=== PATIENT | male | born 1930 | race Caucasian/White ===

== ENCOUNTER 2018-02-03 12:01 | Inpatient (IN) | payer MEDICARE ==
[~2018-02-03] VITALS: Ht 180.3 cm; Wt 69.9 kg
[2018-02-03 12:57] LABS: BASOPHILS % (AUTO) 0.5 % (0.0-5.0); EOSINOPHILS % (AUTO) 0.7 % (0.0-8.0); HEMATOCRIT 30.1 % (42-54); MEAN CORPUSCULAR HEMOGLOBIN 29.4 pg (27.0-33.0); MEAN CORPUSCULAR HGB CONC 34.7 g/dL (32.0-36.0); MEAN CORPUSCULAR VOLUME 84.7 fL (79-99); MONOCYTES % (AUTO) 5.7 % (3.0-13.0); NEUTROPHILS % (AUTO) 76.1 % (40.0-77.0); PLATELET COUNT (AUTO) 218 K/uL (130-400); RED BLOOD CELL COUNT(AUTO) 3.55 MIL/uL (4.50-6.20); RED CELL DISTRIBUTION WIDTH 16.6 % (11.0-15.5); WHITE BLOOD COUNT (AUTO) 3.6 K/uL (4.8-10.8)
[2018-02-03 13:18] LABS: CREATININE 1.5 mg/dL (0.5-1.5); POTASSIUM 3.9 mmol/L (3.5-5.1)
[2018-02-03] MEDS ORDERED: DEXAMETHASONE SOD PHOSPHATE 10MG/ML 1ML VIAL ONE (13:22)
[2018-02-03 13:23] LABS: BILIRUBIN,TOTAL 0.9 mg/dL (0.2-1.0); TOTAL PROTEIN, SERUM 8.6 g/dL (6.0-8.3)
[2018-02-03] MEDS ORDERED: LABETALOL HCL 5 MG/ML 20ML VIAL IV ONE (13:23)
[2018-02-03 13:29] LABS: INR 1.02 (0.85-1.15); PARTIAL THROMBOPLASTIN TIME 27.3 SEC (26.3-35.5); PROTHROMBIN TIME 10.7 SEC (9.6-11.6)
[2018-02-03 13:40] LABS: B-TYPE NATRIURETIC PEPTIDE 252 pg/mL (0-100)
[2018-02-03] MEDS ORDERED: SODIUM CHLORIDE 0.9% 1000ML 1,000 ML IV ONE (13:46)
[2018-02-03] MEDS ORDERED: LEVOFLOXACIN 500 MG/D5W 100 ML 100 ML ONE (14:52)
[2018-02-03 15:00] VITALS: BP 162/70
[2018-02-03 15:11] LABS: APPEARANCE,URINE Clear (CLEAR); BILIRUBIN,URINE Negative (NEGATIVE); COLOR,URINE Dark Yellow (YELLOW); GLUCOSE, URINE (UA) TRACE mg/dL (NEGATIVE); KETONES,URINE Negative (NEGATIVE); LEUKOCYTE ESTERASE ,URINE Negative (NEGATIVE); NITRATE,URINE Negative (NEGATIVE); OCCULT BLOOD,URINE Negative (NEGATIVE); PROTEIN,URINE POS 1+ (NEGATIVE)
[2018-02-03 15:30] LABS: RBC,URINE 0-1 /HPF (0-1); WBC,URINE 0-1 /HPF (0-1)
[2018-02-03 15:31] LABS: BACTERIA,URINE Rare /HPF (None Seen); SQUAMOUS EPITHELIAL CELL,UR Rare /HPF (0-2); TRANSITIONAL EPI CELLS,URINE Rare /HPF (None Seen)
[2018-02-03] MEDS ORDERED: METF10004 PO (16:43)
[2018-02-03] MEDS ORDERED: HYDR25TA PO (16:43)
[2018-02-03] MEDS ORDERED: SIMV10TA6 PO (16:43)
[2018-02-03] MEDS ORDERED: AMLO1CAP13 PO (16:43)
[2018-02-03] MEDS ORDERED: MULT-1289 PO (16:43)
[2018-02-03] MEDS ORDERED: CETI10TA57 PO (16:43)
[2018-02-03] MEDS ORDERED: ONDANSETRON HCL MDV 20ML 2 MG/ML VIAL IVP PRN (17:15)
[2018-02-03] MEDS: SODIUM CHLORIDE 0.9% 1000ML 1,000 ML IV SCH ×2 (17:15→21:54)
[2018-02-03] MEDS ORDERED: ACETAMINOPHEN 325 MG TAB PO PRN ×2 (17:15)
[2018-02-03] MEDS ORDERED: LACTULOSE 20 GM/30 ML UDCUP PO PRN (17:15)
[2018-02-03 19:55] VITALS: BP 144/74
[2018-02-03] MEDS: GUAIFENESIN SUGAR-FREE 100 MG/5 ML UDCUP PO PRN (21:54)
[2018-02-03] MEDS ORDERED: DEXTROSE 50%-WATER 50 ML DISP.SYRIN IV PRN (23:00)
[2018-02-03] MEDS ORDERED: GLUCAGON 1MG KIT 1 MG ML IM PRN (23:00)
[2018-02-03 23:55] VITALS: BP 147/68
[2018-02-04] MEDS ORDERED: LIDOCAINE HCL-MPF 1% 2ML VIAL IVP PRN (00:30)
[2018-02-04] MEDS ORDERED: POTASSIUM CHLORIDE 10% ELIXIR 20 MEQ/15 ML UDCUP PO PRN (00:30)
[2018-02-04] MEDS ORDERED: HYDRALAZINE HCL 20 MG/ML VIAL IV PRN (00:30)
[2018-02-04] MEDS ORDERED: POTASSIUM CHLORIDE 20MEQ/100ML 100 ML IV PRN (00:30)
[2018-02-04 04:00] VITALS: BP 150/67
[2018-02-04 04:32] LABS: CREATININE 1.2 mg/dL (0.5-1.5)
[2018-02-04 04:39] LABS: BASOPHILS % (AUTO) 0.5 % (0.0-5.0); EOSINOPHILS % (AUTO) 1.1 % (0.0-8.0); HEMATOCRIT 24.7 % (42-54); LYMPHOCYTES % (AUTO) 21.1 % (21.0-51.0); MEAN CORPUSCULAR HEMOGLOBIN 32.8 pg (27.0-33.0); MEAN CORPUSCULAR HGB CONC 36.5 g/dL (32.0-36.0); MEAN CORPUSCULAR VOLUME 89.9 fL (79-99); MONOCYTES % (AUTO) 9.5 % (3.0-13.0); NEUTROPHILS % (AUTO) 67.8 % (40.0-77.0); NUCLEATED RED BLOOD CELLS 0.1 % (0.0-0.19); PLATELET COUNT (AUTO) 179 K/uL (130-400); RED BLOOD CELL COUNT(AUTO) 2.75 MIL/uL (4.50-6.20); WHITE BLOOD COUNT (AUTO) 2.6 K/uL (4.8-10.8)
[2018-02-04 04:54] LABS: HEMOGLOBIN A1C 7.7 % (4.0-6.0)
[2018-02-04] MEDS: GUAIFENESIN SUGAR-FREE 100 MG/5 ML UDCUP PO PRN (05:12)
[2018-02-04] MEDS: SODIUM CHLORIDE 0.9% 1000ML 1,000 ML IV SCH (05:20)
[2018-02-04 05:26] LABS: BAND NEUTROPHILS % (MANUAL) 8 % (0-2); EOSINOPHILS % (MANUAL) 2 % (1-6); LYMPHOCYTES % (MANUAL) 21 % (22-44); MAN.DIFF COMMENT-IMPRESSION MANUAL DIFFERENTIAL; MONOCYTES % (MANUAL) 5 % (2-9); REACTIVE LYMPHOCYTES 3 % (0-0); SEGMENTED NEUTROPHILS % 61 % (40-70)
[2018-02-04] MEDS: INSULIN HUMULIN R 100 UNIT/ML 3ML SQ SCH ×4 (06:50→21:49)
[2018-02-04 08:00] VITALS: BP 152/72
[2018-02-04] MEDS: FAMOTIDINE 20MG TAB 20 MG TAB PO SCH (09:23)
[2018-02-04] MEDS: IPRATROPIUM/ALBUTEROL SULFATE 3 ML SOLUTION IH SCH ×2 (13:05→21:17)
[2018-02-04 16:31] VITALS: BP 122/53
[2018-02-04] MEDS: METFORMIN HCL 500 MG TABLET PO SCH (18:32)
[2018-02-04 19:15] VITALS: BP 135/68
[2018-02-04] MEDS: ATORVASTATIN CALCIUM 10 MG TABLET PO SCH (21:40)
[2018-02-04] MEDS: AMLODIPINE-BENAZEPRIL 5-10 MG PO SCH (21:40)
[2018-02-05 00:10] VITALS: BP 134/53
[2018-02-05 04:10] VITALS: BP 143/60
[2018-02-05 05:19] LABS: BASOPHILS % (AUTO) 0.3 % (0.0-5.0); HEMATOCRIT 24.8 % (42-54); LYMPHOCYTES % (AUTO) 23.5 % (21.0-51.0); MEAN CORPUSCULAR HEMOGLOBIN 31.1 pg (27.0-33.0); MEAN CORPUSCULAR HGB CONC 35.5 g/dL (32.0-36.0); MEAN CORPUSCULAR VOLUME 87.7 fL (79-99); MONOCYTES % (AUTO) 8.6 % (3.0-13.0); NEUTROPHILS % (AUTO) 66.6 % (40.0-77.0); NUCLEATED RED BLOOD CELLS 0.1 % (0.0-0.19); PLATELET COUNT (AUTO) 206 K/uL (130-400); RED BLOOD CELL COUNT(AUTO) 2.83 MIL/uL (4.50-6.20); RED CELL DISTRIBUTION WIDTH 16.4 % (11.0-15.5); WHITE BLOOD COUNT (AUTO) 2.5 K/uL (4.8-10.8)
[2018-02-05 05:33] LABS: CREATININE 1.2 mg/dL (0.5-1.5); POTASSIUM 3.5 mmol/L (3.5-5.1)
[2018-02-05] MEDS: GUAIFENESIN SUGAR-FREE 100 MG/5 ML UDCUP PO PRN ×2 (06:01→21:16)
[2018-02-05] MEDS: POTASSIUM CHLORIDE 20 MEQ ERTAB PO PRN ×2 (06:01→09:59)
[2018-02-05] MEDS: INSULIN HUMULIN R 100 UNIT/ML 3ML SQ SCH ×4 (06:22→21:14)
[2018-02-05] MEDS: IPRATROPIUM/ALBUTEROL SULFATE 3 ML SOLUTION IH SCH ×3 (06:30→22:20)
[2018-02-05 08:00] VITALS: BP 145/63
[2018-02-05] MEDS ORDERED: HYDROCHLOROTHIAZIDE 25 MG TABLET PO SCH (09:00)
[2018-02-05] MEDS: ENOXAPARIN SODIUM 40 MG/0.4 ML SYRINGE SQ SCH (09:58)
[2018-02-05] MEDS: METFORMIN HCL 500 MG TABLET PO SCH ×2 (09:59→17:57)
[2018-02-05] MEDS: MULTIVITAMIN WITH MINERALS TABLET PO SCH (09:59)
[2018-02-05] MEDS: FAMOTIDINE 20MG TAB 20 MG TAB PO SCH (10:00)
[2018-02-05] MEDS: CETIRIZINE HCL 5 MG TABLET PO SCH (10:00)
[2018-02-05 11:46] VITALS: BP 140/71
[2018-02-05] MEDS: LEVOFLOXACIN 500 MG/D5W 100 ML 100 ML IV SCH (12:27)
[2018-02-05 15:56] VITALS: BP 126/64
[2018-02-05 19:35] VITALS: BP 135/65
[2018-02-05] MEDS: ATORVASTATIN CALCIUM 10 MG TABLET PO SCH (20:43)
[2018-02-05] MEDS: AMLODIPINE-BENAZEPRIL 5-10 MG PO SCH (20:43)
[2018-02-05] MEDS: MIRTAZAPINE 15 MG TABLET PO SCH (20:43)
[2018-02-06 04:35] VITALS: BP 155/72
[2018-02-06 06:02] LABS: BASOPHILS % (AUTO) 0.3 % (0.0-5.0); HEMATOCRIT 25.5 % (42-54); LYMPHOCYTES % (AUTO) 22.5 % (21.0-51.0); MEAN CORPUSCULAR HGB CONC 36.4 g/dL (32.0-36.0); MEAN CORPUSCULAR VOLUME 87.9 fL (79-99); MONOCYTES % (AUTO) 9.7 % (3.0-13.0); NEUTROPHILS % (AUTO) 66.5 % (40.0-77.0); PLATELET COUNT (AUTO) 220 K/uL (130-400); RED CELL DISTRIBUTION WIDTH 16.6 % (11.0-15.5)
[2018-02-06 06:11] LABS: CREATININE 1.2 mg/dL (0.5-1.5); POTASSIUM 3.9 mmol/L (3.5-5.1)
[2018-02-06] MEDS: IPRATROPIUM/ALBUTEROL SULFATE 3 ML SOLUTION IH SCH ×2 (06:26→12:59)
[2018-02-06] MEDS: INSULIN HUMULIN R 100 UNIT/ML 3ML SQ SCH ×4 (06:31→21:00)
[2018-02-06 07:17] LABS: BASOPHILS % (MANUAL) 2 % (0-2); EOSINOPHILS % (MANUAL) 2 % (1-6); LYMPHOCYTES % (MANUAL) 29 % (22-44); MAN.DIFF COMMENT-IMPRESSION MANUAL DIFFERENTIAL; MONOCYTES % (MANUAL) 6 % (2-9); PLATELET MORPHOLOGY COMMENT ADEQUATE; REACTIVE LYMPHOCYTES 1 % (0-0); SEGMENTED NEUTROPHILS % 60 % (40-70)
[2018-02-06 08:00] VITALS: BP 129/48
[2018-02-06] MEDS: CETIRIZINE HCL 5 MG TABLET PO SCH (09:20)
[2018-02-06] MEDS: FAMOTIDINE 20MG TAB 20 MG TAB PO SCH (09:20)
[2018-02-06] MEDS: MULTIVITAMIN WITH MINERALS TABLET PO SCH (09:20)
[2018-02-06] MEDS: METFORMIN HCL 500 MG TABLET PO SCH ×2 (09:20→17:24)
[2018-02-06] MEDS: ENOXAPARIN SODIUM 40 MG/0.4 ML SYRINGE SQ SCH (09:22)
[2018-02-06 11:53] VITALS: BP 134/60
[2018-02-06] MEDS ORDERED: CETIRIZINE HCL 5 MG TABLET PO PRN (15:30)
[2018-02-06] MEDS ORDERED: FAMOTIDINE 20MG TAB 20 MG TAB PO PRN (15:30)
[2018-02-06 16:00] VITALS: BP 157/76
[2018-02-06 19:10] VITALS: BP 148/84
[2018-02-06] MEDS: ATORVASTATIN CALCIUM 10 MG TABLET PO SCH (21:00)
[2018-02-06] MEDS: MIRTAZAPINE 15 MG TABLET PO SCH (21:00)
[2018-02-06] MEDS: AMLODIPINE-BENAZEPRIL 5-10 MG PO SCH (22:18)
[2018-02-07 00:35] VITALS: BP 140/59
[2018-02-07 04:15] VITALS: BP 163/78
[2018-02-07] MEDS: IPRATROPIUM/ALBUTEROL SULFATE 3 ML SOLUTION IH SCH (06:00)
[2018-02-07] MEDS: INSULIN HUMULIN R 100 UNIT/ML 3ML SQ SCH ×3 (07:02→16:30)
[2018-02-07 08:53] VITALS: BP 144/60
[2018-02-07] MEDS: MULTIVITAMIN WITH MINERALS TABLET PO SCH (09:20)
[2018-02-07] MEDS: METFORMIN HCL 500 MG TABLET PO SCH (09:21)
[2018-02-07] MEDS: ENOXAPARIN SODIUM 40 MG/0.4 ML SYRINGE SQ SCH (09:21)
[2018-02-07] MEDS: LEVOFLOXACIN 500 MG/D5W 100 ML 100 ML IV SCH (11:52)
[2018-02-07 12:06] VITALS: BP 123/55
[2018-02-07 16:32] VITALS: BP 119/51
== END 2018-02-07 17:15 | DRG 195 ==
LOC: EDH 12:01 → OBSVTOIN 13:56 → EDHIP 13:56 → 3CH 15:15
PROVIDERS: ADMIT Family Medicine; ATTEND Family Medicine
DX: J18.9 Pneumonia, unspecified organism (principal); E11.65 Type 2 diabetes mellitus with hyperglycemia; E86.0 Dehydration; I10 Essential (primary) hypertension; E78.5 Hyperlipidemia, unspecified; E07.9 Disorder of thyroid, unspecified; Z96.641 Presence of right artificial hip joint; Z87.01 Personal history of pneumonia (recurrent)
CPT/HCPCS: 36415; 70450; 71046; 76536; 80048; 80053; 81001; 82550; 82948; 83036; 83880; 84443; 84484; 85025; 85610; 85730; 87040; 92610; 93005; 94640; 94664; 97039; J1100; J1650; J1815; J1956; J3490; J7030